=== PATIENT | male | born 1975 | race Caucasian/White ===

== ENCOUNTER 2017-04-03 09:40 | Emergency (ER) | payer MEDICAID, OTHER ==
[~2017-04-03] VITALS: Ht 175.3 cm; Wt 99.8 kg
[~2017-04-03 09:40] MED LIST: NORCO 5-325 TA1 EACH ORAL; ZOFRAN ODT4 MG ORAL
[2017-04-03] MEDS ORDERED: TOPAMAX200 MG ORAL (09:48)
[2017-04-03] MEDS ORDERED: KEPPRA1000 MG ORAL (09:48)
[2017-04-03] MEDS ORDERED: Cyclobenzaprine 10mg Tab ORAL ONE (10:30)
[2017-04-03] MEDS ORDERED: Ketorolac 30mg Inj IM ONE (10:30)
[2017-04-03] MEDS ORDERED: CYCLOBENZAPRINE10 MG ORAL (10:41)
[2017-04-03] MEDS ORDERED: IBUPROFEN600 MG ORAL (10:41)
[2017-04-03 10:48] VITALS: BP 135/91
--- NOTE | 2017-04-03 11:11 | Emergency Room Report ---
History of Present Illness General Chief Complaint: Back Pain-No Injury Source: Patient, Family Member Present Illness HPI 41-year-old male presents ED complaining of back pain. Mother at bedside states that patient fell back pain yesterday after bending over. Notes persistent pain to lower back, 7/10, throbbing, radiating down the left leg. Denies any bowel or bladder incontinence. Denies any leg or motor weakness. No other aggravating relieving factors. Denies any other associated symptoms Allergies: Coded Allergies: SULFA (SULFONAMIDE ANTIBIOTICS) (Unverified Allergy, Unknown, 12/02/13) Uncoded Allergies: SULFA (Allergy, Unknown, 09/28/15) Patient History Past Medical History: seizures Past Surgical History: none Pertinent Family History: none Social History: Denies: smoking, alcohol use, drug use Immunizations: UTD Reviewed Nursing Documentation: PMH: Agreed, PSxH: Agreed Nursing Documentation-PMH Past Medical History: No Stated History Hx Seizures: Yes Review of Systems All Other Systems: negative except mentioned in HPI Physical Exam Vital Signs Date Time Temp Pulse Resp B/P (MAP) Pulse Ox O2 Delivery O2 Flow Rate FiO2 04/03/17 09:49 97.2 71 14 110/72 96 Room Air Sp02 EP Interpretation: reviewed, normal General Appearance: no apparent distress, alert, GCS 15, non-toxic Head: normocephalic Eyes: bilateral eye normal inspection, bilateral eye PERRL ENT: normal ENT inspection Neck: normal inspection Respiratory: normal inspection Cardiovascular #1: normal inspection Gastrointestinal: normal inspection Rectal: deferred Genitourinary: no CVA tenderness, no vertebral tenderness Musculoskeletal: other - paraspinal lumbar tenderness Neurologic: alert, oriented x3, responsive, motor strength/tone normal, sensory intact, speech normal Psychiatric: normal inspection Skin: normal inspection Lymphatic: normal inspection Medical Decision Making Diagnostic Impression: Primary Impression: Sciatica Qualified Codes: M54.32 - Sciatica, left side Additional Impression: Back pain Qualified Codes: M54.42 - Lumbago with sciatica, left side ER Course Hospital Course 41-year-old male presents ED complaining of lower back pain. No evidence of trauma Differential diagnoses include: pyelonephritis, kidney stone, muscle strain, Lspine fracture Clinical course Patient placed on stretcher. After initial history, physical exam reveals a male in no acute distress. There is no vertebral body tenderness. There is some left lower paraspinal tenderness with pain radiating down the left leg. Straight leg raise positive No focal neurological deficits. No motor weakness or sensory deficits consistent with Sciatica. However given lack of trauma no imaging required at this time. Recommended followup with PMD in initial measures such as physical therapy I ordered pain meds. Upon reassessment patient states pain has improved. Upon review of EMR, patient does not have any visits to ED requesting pain medications. Diagnosis - sciatica, back pain Stable and discharged to home with prescription for Motrin, Flexeril. Followup with PMD. Return to ED if symptoms recur or worsen Last Vital Signs Date Time Temp Pulse Resp B/P (MAP) Pulse Ox O2 Delivery O2 Flow Rate FiO2 04/03/17 10:48 98.3 65 14 135/91 97 Room Air Status: improved Disposition: HOME, SELF-CARE Condition: Stable Scripts Cyclobenzaprine Hcl* (FLEXERIL*) 10 Mg Tablet 10 MG ORAL TID Y for Muscle Spasm, #20 TAB Prov: RACHEL MORALES M.D. 04/03/17 Ibuprofen* (MOTRIN*) 600 Mg Tablet 600 MG ORAL Q8H Y for For Pain, #30 TAB 0 Refills Prov: RACHEL MORALES M.D. 04/03/17 Referrals: SANCHO SOLORIO M.D., Payam MD Patient Instructions: Sciatica RACHEL MORALES M.D. Apr 03, 2017 11:11
== END 2017-04-03 10:48 | disposition home or self-care (01) ==
LOC: EMR 10:40
DX: M54.42 Lumbago with sciatica, left side (principal); Z88.2 Allergy status to sulfonamides
CPT/HCPCS: 96372; 99283; J1885